=== PATIENT | female | born 1950 | race Caucasian/White ===

== ENCOUNTER 2016-10-20 20:25 | Inpatient (IN) | payer MEDICARE, OTHER ==
--- NOTE | ~2016-10-20 | EGD ---
EGD REPORT [facility] [address] [address] NAME: SARA MIDDLETON : [birth year] STATUS : ADM IN PAT#: [id number] AGE: 66 ADM/REG DATE : 10/20/16 MR#: [id number] REPORT SERV DATE: 10/26/16 DICTATED BY: DANIEL ENRIQUE DATE: 10/26/16 REPORT STATUS : Draft [facility]ANS[facility]ED [facility]: [facility] DATE: 10/26/16 Pulmonology Patient Name: Sara Middleton Procedure Date: 10/26/2016 9:50 AM Date of : 1950 Attending MD: ALEX ENRIQUE MD Procedure Date No Time: 10/26/2016 Procedure: Bronchoscopy Indications: Bilateral infiltrates, chronic cough, tree in bud opacities, question of atypical infection Providers: ALEX ENRIQUE MD Referring MD: JAKOB WILSON Medicines: Lidocaine 2% 20 mL Complications: No immediate complications Procedure: Pre-Anesthesia Assessment: - A History and Physical has been performed. Patient meds and allergies have been reviewed. The risks and benefits of the procedure and the sedation options and risks were discussed with the patient. All questions were answered and informed consent was obtained. Patient identification and proposed procedure were verified prior to the procedure by the physician and the nurse in the pre-procedure area in the procedure room. Mental Status Examination: alert and oriented. Airway Examination: normal oropharyngeal airway. Respiratory Examination: poor air movement and rhonchi. CV Examination: normal and RRR, no murmurs, no S3 or S4. ASA Grade Assessment: IV - A patient with severe systemic disease that is a constant threat to life. After reviewing the risks and benefits, the patient was deemed in satisfactory condition to undergo the procedure. The anesthesia plan was to use general anesthesia. Immediately prior to administration of medications, the patient was re-assessed for adequacy to receive sedatives. The heart rate, respiratory rate, oxygen saturations, blood pressure, adequacy of pulmonary ventilation, and response to care were monitored throughout the procedure. The physical status of the patient was re-assessed after the procedure. After obtaining informed consent, the Bronchoscope was introduced through the mouth, via the endotracheal tube (the patient was intubated for the procedure) and advanced to the tracheobronchial tree. The procedure was accomplished without difficulty. The patient tolerated the procedure well. Findings: EGD REPORT [place] [facility] [place]. [address] NAME: SARA MIDDLETON : [birth year] STATUS : ADM IN [facility]#: [id number] AGE: 66 ADM/REG DATE : 10/20/16 MR#: [id number] REPORT SERV DATE: 10/26/16 DICTATED BY: DANIEL ENRIQUE DATE: 10/26/16 REPORT STATUS : Draft TRANSCRIBED BY: [facility] DATE: 10/26/16 The laryngeal mask airway is in normal position. The vocal cords move normally with breathing. The subglottic space is normal. The trachea is of normal caliber. The zhanna is sharp. The tracheobronchial tree was examined to at least the first subsegmental level. Bronchial mucosa and anatomy are normal; there are no endobronchial lesions, and no secretions. Bronchoalveolar lavage was performed in the right middle lobe of the lung and sent for cell count, cytology, bacterial culture, viral smears \T\ culture, and fungal and AFB analysis. 180 mL of fluid were instilled. 30 mL were returned. The return was cellular. Transbronchial brushings were obtained in the right middle lobe of the lung and sent for routine cytology and bacterial, AFB and fungal analysis. Two samples were obtained. Impression: - The examination was normal. - Bronchoalveolar lavage was performed. - Transbronchial brushings were obtained. Recommendation: - Await test results. - Chest X-ray post-procedure. Attending Participation: I personally performed the entire procedure. ALEX ENRIQUE MD 10/26/2016 11:54 AM This report has been signed electronically. Number of Addenda: 0 Note Initiated On: 10/26/2016 9:50 AM [address] [address]
--- NOTE | ~2016-10-20 | CN ---
Consultation Report [facility] [address] [facility] [place]. [address] NAME: AMY MIDDLETON : [birth year] STATUS : ADM IN [facility]#: [id number] AGE: 66 ADM/REG DATE : 10/20/16 MR#: [id number] REPORT SERV DATE: 10/23/16 DICTATED BY: LAURA MORFIN DATE: 10/23/16 REPORT STATUS : Draft TRANSCRIBED BY: MODL DATE: 10/23/16 PULMONARY CONSULTATION DATE OF CONSULTATION: 10/23/2016 REASON FOR CONSULTATION: Coughing and not feeling well. HISTORY OF PRESENT ILLNESS: Mrs. Middleton is a 66-year-old female with a past medical history of underlying chronic kidney disease, who was noted to have a fall around recently and was sent to the hospital. The patient states that for the last month, she has been having increased cough and congestion. She has not had any fevers or chills, she has had a little bit of sputum and has been short of breath. She is currently on oxygen therapy. We reviewed her CT scan, which show underlying bilateral infiltrates. These were noted back in 11/2014 also. She has never had a bronchoscopy to evaluate whether she may have chronic lung infection or not. She does have a known history of rheumatoid arthritis on chronic immunosuppression per the history and physical, however, I do not see any medication that is immunosuppressive. PAST MEDICAL HISTORY: End-stage renal disease, diabetes, cervical spine narrowing, coronary artery disease, heart failure, rheumatoid arthritis, hypothyroidism, history of recurrent urinary tract infections, fibromyalgia, hypertension, hyperlipidemia, hemorrhagic cystitis, history of stroke. HOME MEDICATIONS: Home medication list reviewed, the patient is on albuterol, Plavix, Breo. ALLERGIES: TURKEY, DOXYCYCLINE. SOCIAL HISTORY: The patient is a nonsmoker. No alcohol or illicit drug use. FAMILY HISTORY: The patient denies having any positive family history. REVIEW OF SYSTEMS: Obtained a review of systems, however, the patient is not the best historian. She had no further complaints, wright negative, otherwise than what was discussed above. The patient states that she is to see a die hardener here in the next two weeks at our clinic but prior to that has not seen a die hardener. PHYSICAL EXAMINATION: VITAL SIGNS: Afebrile, heart rate 60s, respiratory rate is normal, oxygen saturation 99% on 3 L, blood pressure currently 150s to 160s. GENERAL: The patient is alert and oriented, no acute distress. PULMONARY: Mild rhonchorous breath sounds but otherwise good air movement, no wheezing. CARDIAC: Regular rate, no murmurs, somewhat distant. ABDOMEN: Soft, nontender, and nondistended. Consultation Report [place] [id number] [place]. [address] NAME: AMY MIDDLETON : [birth year] STATUS : ADM IN [facility]#: [id number] AGE: 66 ADM/REG DATE : 10/20/16 MR#: [id number] REPORT SERV DATE: 10/23/16 DICTATED BY: LAURA MORFIN DATE: 10/23/16 REPORT STATUS : Draft TRANSCRIBED BY: BALJINDER DATE: 10/23/16 EXTREMITIES: No lower extremity edema, peripheral pulses noted, somewhat faint. NEUROLOGIC: The patient is able to move all extremities with no perceived difficulty. HEENT: The patient has a hoarse voice, for which she states ENT has seen her for this hoarse voice and loss of voice strength. LABORATORY EXAMINATION: Mild leukocytosis, mild anemia, abnormal kidney function, elevated CRP, BNP greater than 5000 and mild positive troponin. IMAGING: The patient had a CT scan done two days ago, which shows this course tree-in-bud opacities throughout, noted in the left upper lobe, left lower lobe and somewhat thickened airways. ASSESSMENT AND PLAN: Mrs. Middleton is a 66-year-old female with a past medical history noted above, who presents to the Pulmonary Consult Service with pulmonary infiltrates, tree-in-bud opacities. Plan is to conduct a bronchoscopy to look for nontuberculous mycobacterial disease and/or other chronic lung infection. The patient is on Plavix and therefore, we will hold off on transbronchial biopsies. No significant enlarged mediastinal adenopathy and therefore, we will forego EBUS. Other consideration is chronic aspiration and therefore will get a modified barium swallow on Tuesday. Chronic cough: The patient is currently on cough medications with cough syrup, which is helping, she was on Breo home, currently is on Dulera and will continue that therapy. She has p.r.n. DuoNebs. I do not hear any coughing during my clinical evaluation. Thank for much for allowing us to participate in your patient's care, will continue to follow along with you. HFQ/MODL Laura Morfin MD / [id number] CC: Joe Ribera M.D.
--- NOTE | ~2016-10-20 | HP ---
History And Physical [address] [place]. [address] NAME: AMY MIDDLETON : [birth year] STATUS : ADM IN [facility]#: [id number] AGE: 66 ADM/REG DATE : 10/20/16 MR#: [id number] REPORT SERV DATE: 10/21/16 DICTATED BY: RAMONE HARRELL DATE: 10/21/16 REPORT STATUS : Draft TRANSCRIBED BY: MODRoberto DATE: 10/21/16 DATE OF ADMISSION: 10/20/2016 REASON FOR ADMISSION: Volume overload with elevated WBC. HISTORY OF PRESENT ILLNESS: This is a very pleasant 66-year-old female patient, who dialyzes on Tuesday, Tuesday, and Tuesday at [facility]. She reports to [facility] after dialysis yesterday complaining of shortness of breath and dyspnea, which worsened the last evening with a noted BNP above 5000 and a white count at 14.9. She is admitted in favor of further workup and support. She reports no associated fever or chest pain, is chronic for nausea and intermittent emesis by her report, and is in no acute distress during evaluation this morning. PAST MEDICAL HISTORY: Positive for end-stage renal disease with dialysis at [facility] via left upper extremity access. The remainder of her medical history is positive for diabetes mellitus; chronic nausea and vomiting; previous [facility] to left cephalic arch by Dr. Pedersen, cervical spine degenerative arthritis, C5-C6, C6-C7 foraminal narrowing of the left with probable radicular pain, treated previously with Neurontin; coronary artery disease, not amenable to further intervention; history of congestive heart failure; rheumatoid arthritis, on chronic immunosuppression; hypothyroidism; history of recurrent urinary tract infections; depression; fibromyalgia; history of hypertension; hyperlipidemia; vitamin D deficiency; hemorrhagic cystitis on bladder biopsy; remote cholecystectomy; renal osteodystrophy; and remote cerebrovascular accident with left-sided weakness and numbness. REVIEW OF SYSTEMS: Completed, please see HPI for pertinent details. SOCIAL HISTORY: No EtOH. No illicit drugs. No tobacco. ALLERGIES: SHE LISTS ALLERGIES TO DOXYCYCLINE AND TO TURKEY. ACTIVE MEDICATIONS: Include ProAir HFA one puff inhaled q.4 hours p.r.n., Proventil one neb inhaled p.r.n. shortness of breath, ASA 325 mg p.o. q.h.s., Tums 1000 mg p.o. with meals, Coreg 12.5 mg p.o. b.i.d., Plavix 75 mg p.o. q.h.s., 630 mg p.o. with meals, Prozac 20 mg p.o. q.48 hours, Prozac 40 mg p.o. q.48 hours, Breo Ellipta one puff inhaled daily, NovoLog via sliding scale and 8 units subcu twice a day, Synthroid 75 mcg p.o. daily, Protonix 40 mg p.o. q.h.s., Zocor 40 mg p.o. daily. PHYSICAL EXAMINATION: VITAL SIGNS: Blood pressure at 131/56, heart rate at 72 beats per minute and regular, respiratory rate at 20, temperature 98.2, and 97% on 3 L. GENERAL: She is awake and alert, in no acute distress, chronically ill-appearing female. HEENT: Normocephalic and atraumatic. Normal ocular movements. No scleral icterus or conjunctival pallor is appreciated. NECK: Supple without thyromegaly. No JVD. No mass. History And Physical [address] [address] NAME: AMY MIDDLETON : [birth year] STATUS : ADM IN [facility]#: [id number] AGE: 66 ADM/REG DATE : 10/20/16 MR#: [id number] REPORT SERV DATE: 10/21/16 DICTATED BY: RAMONE HARRELL DATE: 10/21/16 REPORT STATUS : Draft TRANSCRIBED BY: BALJINDER DATE: 10/21/16 CHEST: Shows positive S1 and S2. No rubs. No gallops. LUNGS: Diminished with rhonchi, particularly in the left base. GI: Shows positive bowel sounds to all four quadrants. No appreciable mass or tenderness. : Deferred. EXTREMITIES: Show positive pulses. No clubbing, cyanosis, or edema. Left upper extremity has an access for active hemodialysis. NEUROLOGIC: She appears to be grossly intact and nonfocal. SKIN: Warm, dry, and intact to visualized surfaces. No rash, lesions, or ecchymosis. She is of appropriate mood and affect. LABORATORY DATA: Pertinent laboratories and imaging to this evaluation: Sodium 135, potassium 3.5, chloride 95, CO2 of 33, BUN , creatinine 3.19, reflected GFR at 16 mL/minute, calcium 9.2, magnesium 1.8. Troponin 0.05. White blood cell count of 14.9, RBC 3.81, hemoglobin 11.4, hematocrit 35.3. B-natriuretic peptide greater than 5000. Chest x-ray shows clear lungs and cardiomegaly. IMPRESSION AND PLAN: This is a 66-year-old female patient on Tuesday, Tuesday, and Tuesday dialysis at [facility], who reports to [facility] with complaint of increasing shortness of breath, dyspnea on exertion, productive cough and is noted to have a BNP above 5000 and elevated WBC. Considering her current elevated B-natriuretic peptide, hemodialysis today, an attempted UF as tolerated 2-3 kg, check her echocardiogram, trend her troponins, consider cardiac consultation. She does have a previous cardiac history and is not amenable to cardiac surgery according to her previous histories. Check blood cultures x2. Urinary culture with C and S if she still actively makes urine. Cover her with vancomycin and Zosyn and request pharmacy dosing. DuoNeb q.6 hours and p.r.n. Ask for evaluation by Physical Therapy while here and consider rehabilitation if clinically warranted. Further modification of the treatment plan may be made based on clinical presentation of the patient, laboratory results, and further consultation with Renal attending. DICTATED BY: Kiet Taylor NP JR/BALJINDER Ramone Harrell M.D. / [id number] CC: Joe Ribera M.D.
--- NOTE | ~2016-10-20 | DS ---
Discharge Summary [address] [address] [place]. [address] NAME: AMY MIDDLETON : 46 STATUS : DIS IN PAT#: [id number] AGE: 66 ADM/REG DATE : 10/20/16 MR#: [id number] REPORT SERV DATE: 11/09/16 DICTATED BY: RAMONE HARRELL DATE: 11/09/16 REPORT STATUS : Draft TRANSCRIBED BY: BALJINDER DATE: 11/09/16 Data Collection from hospitalization DISCHARGE DIAGNOSES: 1. Bilateral pneumonia. 2. Chronic cough. 3. End-stage renal disease. 4. Diabetes mellitus. 5. Chronic immunosuppression for rheumatoid arthritis. 6. Coronary artery disease. 7. Hypertension. 8. History of congestive heart failure. 9. Hypothyroidism. 10.Depression. 11.Fibromyalgia. 12.Hyperlipidemia. 13.Vitamin D deficiency. 14.History of renal osteodystrophy. 15.Remote history of cerebrovascular accident with left-sided weakness and numbness. CONSULTATIONS: Laura Morfin MD PROCEDURES PERFORMED: 1. Bronchoscopy on 10/26/2016. 2. CT scan of the chest without contrast on 10/21/2016. 3. Modified barium swallow study on 10/27/2016. PATHOLOGY: Right middle lobe bronchoalveolar lavage (ThinPrep and Gram stain) - benign respiratory mucosa and macrophages with mild acute inflammation, Gram stain with rare budding yeast, right middle lobe brushing (ThinPrep) - benign bronchial mucosa. MEDICATIONS: Aspirin 325 mg at bedtime, Tums 1000 mg with meals, Coreg 12.5 mg twice a day, Plavix 75 mg at bedtime, ferrous sulfate 600 mg with meals, Prozac 40 mg every 48 hours alternating with 20 mg every 48 hours, NovoLog injection insulin as instructed, Synthroid 75 mcg daily, Nitrol ointment one-inch topically every six hours, Protonix 40 mg at bedtime, Florastor one capsule twice a day, Zocor 40 mg at bedtime, DuoNeb 3 mL via inhaler every four hours while awake, Dulera two puffs via inhaler twice a day, Levemir 8 units subcutaneously twice a day, Tylenol 650 mg as needed, Norvasc 5 mg twice a day as needed, Tessalon 100 mg every six hours as needed, Robitussin A-C 5 mL every eight hours as needed, [place] 5/325 one tablet every six hours as needed, nitroglycerin 0.4 mg sublingually as needed, Proventil 3 mL via inhaler every two hours as needed and one puff via inhaler every four hours as needed, Auryxia 630 mg with meals, and Breo Ellipta one puff via inhaler daily. CONDITION AT DISCHARGE: Stable. DISPOSITION: The patient was discharged to [facility] on a renal- diabetic diet with activities as instructed. She would follow up for dialysis on Discharge Summary [address] [place]. [address] NAME: AMY MIDDLETON : 46 STATUS : DIS IN PAT#: [id number] AGE: 66 ADM/REG DATE : 10/20/16 MR#: [id number] REPORT SERV DATE: 11/09/16 DICTATED BY: RAMONE HARRELL DATE: 11/09/16 REPORT STATUS : Draft TRANSCRIBED BY: BALJINDER DATE: 11/09/16 11/01/2016. HOSPITAL COURSE: This is a 66-year-old female who dialyzes on Mondays, Wednesdays, and Fridays. She presented to the [facility] after dialysis at this time complaining of shortness of breath and dyspnea which worsened during the evening and she was found to have a BNP above 5000 and a white count of 14.9. She had no associated fever or chest pain. She was admitted to the hospital at this time for further evaluation and treatment. Upon admission, creatinine level was 3.19. BNP was elevated. Hemodialysis was going to be performed. Echocardiogram was requested. We were going to trend troponin. Blood cultures were going to be checked. Urine cultures were going to be obtained with C and S. She would be covered with vancomycin and Zosyn. DuoNebs would be provided as needed. A CT scan of the chest without contrast was performed. This revealed increased diffuse bilateral interstitial opacity, which was likely interstitial edema. Interstitial pneumonitis could not be excluded. There was minimal left basilar atelectasis. The patient still had a cough. Echocardiogram revealed ejection fraction of 50%. On 10/22/2016, she was evaluated by Physical Therapy. Hemodialysis therapy was performed. Speech-Language pathology performed a bedside swallow study. There were no overt signs or symptoms of aspiration. Aspiration precautions were in place. On 10/23/2016, the patient was seen by Dr. Laura Morfin regarding cough and not feeling well. She was currently on oxygen therapy. Her CT scan had shown underlying bilateral infiltrates, these had been noted in November of 2014. She has never had a bronchoscopy to evaluate whether she may have chronic lung infection or not. She does have a history of rheumatoid arthritis and is on chronic immunosuppression. It was felt that the patient should undergo bronchoscopy to look for nontuberculous mycobacterial disease and/or other chronic lung infection. The patient is on Plavix and we would therefore hold off on transbronchial biopsies. There was no significant enlarged mediastinal adenopathy, and therefore, we would forego EBUS. Another consideration with chronic aspiration and we would get a modified barium swallow study. On 10/24/2016, creatinine level was 5.01. White count was 11.1. She had good pain control. She had no focal deficits. Plans were being made for bronchoscopy to be performed. The patient was requesting cough syrup. Hemodialysis therapy continued. Antibiotics were continued. On 10/26/2016, the patient underwent bronchoscopy by Dr. Simon Maurice. The examination was normal. Bronchoalveolar lavage was performed. Transbronchial brushings were obtained. She continued to have a cough. The following day, a modified barium swallow study was performed. No aspiration of liquids or solids was seen. Aspiration precautions remained in place. Over the next couple of days, she continued to do well. Discharge planning was performed. All bronchoscopy cultures were negative thus far. On 10/29/2016, her cough had improved. Her abdomen was soft and nontender. Her lungs were clear. Discharge instructions were given. Due to her improved and stable condition, she was discharged to [facility] with the above-stated instructions. Information collected by: Sanjana Tariq I submit the above information as my discharge summary. Discharge Summary [address] [address] NAME: AMY MIDDLETON : 46 STATUS : DIS IN PAT#: [id number] AGE: 66 ADM/REG DATE : 10/20/16 MR#: [id number] REPORT SERV DATE: 11/09/16 DICTATED BY: RAMONE HARRELL DATE: 11/09/16 REPORT STATUS : Draft TRANSCRIBED BY: MODRoberto DATE: 11/09/16 TG/MODL Ramone Harrell M.D. / [id number] CC: Joe Ribera M.D. [facility]
[2016-10-20 18:18] LABS: BASOPHILS 0.2 %; BASOPHILS ABSOLUTE 0.03 10/3/uL (0.0-0.16); EOSINOPHILS 1.7 %; EOSINOPHILS ABSOLUTE 0.26 10/3/uL (0.0-0.53); HEMOGLOBIN 11.4 g/dL (12.0-16.0); IMMATURE GRANULOCYTES 0.3 %; IMMATURE GRANULOCYTES ABSOLUTE 0.05 10/3/uL (0.0-0.11); LYMPHOCYTES 6.1 %; LYMPHOCYTES ABSOLUTE 0.91 10/3/uL (0.67-4.30); MEAN CORPUS HGB CONC 32.3 g/dL (32.0-36.0); MEAN CORPUSCULAR HEMOGLOB 29.9 pg (26.0-34.0); MEAN CORPUSCULAR VOLUME 92.7 fL (80-100); MEAN PLATELET VOLUME 10.8 fL (9.2-13.0); MONOCYTES 6.1 %; MONOCYTES ABSOLUTE 0.91 10/3/uL (0.21-1.20); NEUTROPHILS 85.6 %; NEUTROPHILS ABSOLUTE 12.77 10/3/uL (2.02-8.40); PLATELET COUNT 195 10/3/uL (150-400); RBC DISTRIBUTION WIDTH 15.7 % (12.0-16.0); RED CELL COUNT 3.81 10/6/uL (4.0-5.6); WHITE BLOOD CELLS 14.9 10/3/uL (4.5-10.5)
[2016-10-20 18:21] LABS: HEMATOCRIT 35.3 % (36.0-48.0); MANUAL DIFF NO %
[2016-10-20 18:26] LABS: INTERNATIONAL NORMAL RATI 1.1 UNITS (-); PARTIAL THROMBO TIME 30.6 SEC (22.5-37.2); PROTIME (NOT ORD) 13.8 SEC (12.0-14.5)
[2016-10-20 18:34] LABS: BUN (BLOOD UREA NITROGEN) 16 MG/DL (6-23); CALCIUM, SERUM 9.2 MG/DL (8.5-10.4); CHEST PAIN PROFILE TAT 0 Hrs 20 Mins; CHLORIDE, SERUM 95 MMOL/L (96-112); CO2 (CARBON DIOXIDE) 33 MMOL/L (24-34); CREATININE 3.19 MG/DL (0.55-1.02); GFR AFRICAN AMERICAN 16 ML/MIN (>=60); GFR NON AFRICAN AMERICAN 14 ML/MIN (>=60); GLUCOSE, SERUM 142 MG/DL (60-99); POTASSIUM, SERUM 3.5 MMOL/L (3.5-5.3); SODIUM, SERUM 135 MMOL/L (135-148); TROPONIN I 0.05 NG/ML (<0.05)
[2016-10-20 18:41] LABS: BAND NEUTROPHILS 1 %; EOSINOPHILS 3 %; EOSINOPHILS ABSOLUTE (CALC) 0.45 10/3/uL (0.0-0.53); ER DIFF TAT 0 Hrs 27 Mins; LYMPHOCYTES 4 %; MONOCYTES 2 %; NEUTROPHILS ABSOLUTE (CALC) 13.56 10/3/uL (2.02-8.40); SEGMENTED NEUTROPHIL (0) 90 %; TOTAL NUCLEATED CELLS 100
[2016-10-20 18:42] LABS: PLATELET ESTIMATE ADQ (ADEQUATE); RBC MORPHOLOGY NORM (NORMAL)
[~2016-10-20 20:25] MED LIST: ACTEMRA80 MG/4 ML IV; ALBUTEROL5 INH; AMLODIPINE; AMLODIPINE PO; ARAVA10 PO; ASAB PO; ASABAYER PO; AURYXIA PO; BUM1 PO; BUSPAR5 PO; CALGLUCTAB PO; CALTRA600D PO; CALTRAT600 PO; CEFT5 PO; CENTRUM PO; COREG12 PO; COREG25 PO; COREG3 PO; CYMBALTA60 PO; DITRO5 PO; FOLIC PO; LANTUS SC; LANTUS SQ; LASIX; LEVAQUIN750 MG PO; LEVEMFLXPN SC; LEVEMIR SC; LEVEMIR SQ; LEVOTHROID75 MCG PO; LEVOTHYROXIN75 MCG PO; LISINOPRIL40 MG PO; LORTAB10 PO; LYRICA100 MG PO; LYRICA50 PO; METOCLOPRAM; MTX2.5 PO; NEPHRO PO; NEUR100 PO; NORV25 PO; NORV5 PO; NOVOLOG PEN; NOVOLOG SC; NOVOLOG SQ; NOVOPEN SC; P10 PO; PLAQ200B PO; PLAVIX PO; PREV30 PO; PRILO PO; PRIN10 PO; RENAL SFTGLS1 MG PO; REST15 PO; REST75 PO; ROCALTROL0.25 MCG OR; SALAGEN5 M1 OR; SALAGEN5 M1 PO; SYN.025B PO; SYN.05 PO; SYN075 PO; TESS PO; TESSALON PO; TREXALL10 MG PO; TUMSROLL PO; VISTARIL PO; VITAMIN D1000 UNI1 PO; Z-PAK PO; ZESTRIL40 MG PO; ZOCOR40 PO; [UNRECOGNIZED DRUG - OTHER]
[2016-10-20] MEDS ORDERED: ASA5GR PO (20:51)
[2016-10-20] MEDS ORDERED: AURYXIA210 MG PO (20:51)
[2016-10-20] MEDS ORDERED: NOVOLOG SC (20:52)
[2016-10-20] MEDS ORDERED: LEVEMFLXPN SC (20:52)
[2016-10-20] MEDS ORDERED: COREG12 PO (20:52)
[2016-10-20] MEDS ORDERED: PROTONIX PO (20:53)
[2016-10-20] MEDS ORDERED: PLAVIX PO (20:53)
[2016-10-20] MEDS ORDERED: TUMSROLL PO (20:53)
[2016-10-20] MEDS ORDERED: SYN075 PO (20:53)
[2016-10-20] MEDS ORDERED: PROAIR HFA INH (20:53)
[2016-10-20] MEDS ORDERED: ALBUTEROL5 INH (20:54)
[2016-10-20] MEDS ORDERED: ZOCOR40 PO (20:54)
[2016-10-20] MEDS ORDERED: BREO ELLIPTA INH (20:54)
[2016-10-20] MEDS ORDERED: PROZAC PO (20:55)
[2016-10-20] MEDS ORDERED: PROZAC40 MG PO (20:55)
[2016-10-21 08:30] LABS: BASOPHILS 0.1 %; BASOPHILS ABSOLUTE 0.01 10/3/uL (0.0-0.16); EOSINOPHILS 0.1 %; EOSINOPHILS ABSOLUTE 0.01 10/3/uL (0.0-0.53); HEMATOCRIT 31.4 % (36.0-48.0); HEMOGLOBIN 10.3 g/dL (12.0-16.0); IMMATURE GRANULOCYTES 0.4 %; IMMATURE GRANULOCYTES ABSOLUTE 0.06 10/3/uL (0.0-0.11); LYMPHOCYTES 10.4 %; LYMPHOCYTES ABSOLUTE 1.69 10/3/uL (0.67-4.30); MANUAL DIFF NO %; MEAN CORPUS HGB CONC 32.8 g/dL (32.0-36.0); MEAN CORPUSCULAR HEMOGLOB 29.9 pg (26.0-34.0); MEAN CORPUSCULAR VOLUME 91.3 fL (80-100); MEAN PLATELET VOLUME 11.3 fL (9.2-13.0); MONOCYTES 6.2 %; NEUTROPHILS 82.8 %; NEUTROPHILS ABSOLUTE 13.44 10/3/uL (2.02-8.40); PLATELET COUNT 175 10/3/uL (150-400); RBC DISTRIBUTION WIDTH 15.5 % (12.0-16.0); RED CELL COUNT 3.44 10/6/uL (4.0-5.6); WHITE BLOOD CELLS 16.2 10/3/uL (4.5-10.5)
[2016-10-21 08:35] LABS: ALBUMIN 2.8 G/DL (3.5-5.0); BUN (BLOOD UREA NITROGEN) 26 MG/DL (6-23); CALCIUM, SERUM 8.9 MG/DL (8.5-10.4); CHLORIDE, SERUM 99 MMOL/L (96-112); CO2 (CARBON DIOXIDE) 31 MMOL/L (24-34); CREATININE 4.09 MG/DL (0.55-1.02); GFR AFRICAN AMERICAN 12 ML/MIN (>=60); GFR NON AFRICAN AMERICAN 11 ML/MIN (>=60); GLUCOSE, SERUM 159 MG/DL (60-99); PHOSPHORUS, SERUM 3.5 MG/DL (2.5-4.5); POTASSIUM, SERUM 3.8 MMOL/L (3.5-5.3); SODIUM, SERUM 137 MMOL/L (135-148)
[2016-10-22 06:27] LABS: ALBUMIN 2.8 G/DL (3.5-5.0); BASOPHILS 0.2 %; BASOPHILS ABSOLUTE 0.03 10/3/uL (0.0-0.16); BUN (BLOOD UREA NITROGEN) 26 MG/DL (6-23); CALCIUM, SERUM 8.9 MG/DL (8.5-10.4); CHLORIDE, SERUM 107 MMOL/L (96-112); CO2 (CARBON DIOXIDE) 26 MMOL/L (24-34); CREATININE 3.56 MG/DL (0.55-1.02); EOSINOPHILS 0.7 %; EOSINOPHILS ABSOLUTE 0.09 10/3/uL (0.0-0.53); GFR AFRICAN AMERICAN 14 ML/MIN (>=60); GFR NON AFRICAN AMERICAN 12 ML/MIN (>=60); GLUCOSE, SERUM 92 MG/DL (60-99); HEMOGLOBIN 10.8 g/dL (12.0-16.0); IMMATURE GRANULOCYTES 0.4 %; IMMATURE GRANULOCYTES ABSOLUTE 0.05 10/3/uL (0.0-0.11); LYMPHOCYTES 6.5 %; LYMPHOCYTES ABSOLUTE 0.81 10/3/uL (0.67-4.30); MEAN CORPUS HGB CONC 31.8 g/dL (32.0-36.0); MEAN CORPUSCULAR HEMOGLOB 29.8 pg (26.0-34.0); MEAN CORPUSCULAR VOLUME 93.7 fL (80-100); MEAN PLATELET VOLUME 11.4 fL (9.2-13.0); MONOCYTES 4.2 %; MONOCYTES ABSOLUTE 0.52 10/3/uL (0.21-1.20); NEUTROPHILS ABSOLUTE 10.98 10/3/uL (2.02-8.40); PHOSPHORUS, SERUM 3.1 MG/DL (2.5-4.5); PLATELET COUNT 190 10/3/uL (150-400); POTASSIUM, SERUM 3.6 MMOL/L (3.5-5.3); RBC DISTRIBUTION WIDTH 15.9 % (12.0-16.0); RED CELL COUNT 3.63 10/6/uL (4.0-5.6); SODIUM, SERUM 142 MMOL/L (135-148); TROPONIN I 0.06 NG/ML (<0.05); WHITE BLOOD CELLS 12.5 10/3/uL (4.5-10.5)
[2016-10-22 06:29] LABS: MANUAL DIFF NO %
[2016-10-23 07:09] LABS: BASOPHILS 0.3 %; BASOPHILS ABSOLUTE 0.04 10/3/uL (0.0-0.16); EOSINOPHILS 1.8 %; EOSINOPHILS ABSOLUTE 0.22 10/3/uL (0.0-0.53); HEMATOCRIT 34.1 % (36.0-48.0); HEMOGLOBIN 10.8 g/dL (12.0-16.0); IMMATURE GRANULOCYTES 0.2 %; IMMATURE GRANULOCYTES ABSOLUTE 0.03 10/3/uL (0.0-0.11); LYMPHOCYTES 12.8 %; MEAN CORPUS HGB CONC 31.7 g/dL (32.0-36.0); MEAN CORPUSCULAR HEMOGLOB 29.7 pg (26.0-34.0); MEAN CORPUSCULAR VOLUME 93.7 fL (80-100); MONOCYTES 6.9 %; MONOCYTES ABSOLUTE 0.86 10/3/uL (0.21-1.20); NEUTROPHILS ABSOLUTE 9.79 10/3/uL (2.02-8.40); PLATELET COUNT 199 10/3/uL (150-400); RBC DISTRIBUTION WIDTH 15.5 % (12.0-16.0); RED CELL COUNT 3.64 10/6/uL (4.0-5.6); WHITE BLOOD CELLS 12.5 10/3/uL (4.5-10.5)
[2016-10-23 07:10] LABS: ALBUMIN 3.1 G/DL (3.5-5.0); BUN (BLOOD UREA NITROGEN) 25 MG/DL (6-23); CALCIUM, SERUM 9.1 MG/DL (8.5-10.4); CHLORIDE, SERUM 103 MMOL/L (96-112); CO2 (CARBON DIOXIDE) 29 MMOL/L (24-34); CREATININE 3.61 MG/DL (0.55-1.02); GFR AFRICAN AMERICAN 14 ML/MIN (>=60); GFR NON AFRICAN AMERICAN 12 ML/MIN (>=60); GLUCOSE, SERUM 145 MG/DL (60-99); PHOSPHORUS, SERUM 2.2 MG/DL (2.5-4.5); POTASSIUM, SERUM 3.6 MMOL/L (3.5-5.3); SODIUM, SERUM 140 MMOL/L (135-148)
[2016-10-23 07:12] LABS: MANUAL DIFF NO %
[2016-10-24 05:50] LABS: BASOPHILS 0.5 %; BASOPHILS ABSOLUTE 0.05 10/3/uL (0.0-0.16); EOSINOPHILS 5.1 %; EOSINOPHILS ABSOLUTE 0.56 10/3/uL (0.0-0.53); HEMATOCRIT 34.1 % (36.0-48.0); IMMATURE GRANULOCYTES 0.3 %; IMMATURE GRANULOCYTES ABSOLUTE 0.03 10/3/uL (0.0-0.11); LYMPHOCYTES 16.4 %; LYMPHOCYTES ABSOLUTE 1.81 10/3/uL (0.67-4.30); MANUAL DIFF NO %; MEAN CORPUS HGB CONC 32.3 g/dL (32.0-36.0); MEAN CORPUSCULAR HEMOGLOB 29.6 pg (26.0-34.0); MEAN CORPUSCULAR VOLUME 91.7 fL (80-100); MEAN PLATELET VOLUME 10.3 fL (9.2-13.0); MONOCYTES 6.3 %; NEUTROPHILS 71.4 %; NEUTROPHILS ABSOLUTE 7.92 10/3/uL (2.02-8.40); PLATELET COUNT 217 10/3/uL (150-400); RBC DISTRIBUTION WIDTH 15.3 % (12.0-16.0); RED CELL COUNT 3.72 10/6/uL (4.0-5.6); WHITE BLOOD CELLS 11.1 10/3/uL (4.5-10.5)
[2016-10-24 06:04] LABS: ALBUMIN 2.9 G/DL (3.5-5.0); BUN (BLOOD UREA NITROGEN) 34 MG/DL (6-23); CALCIUM, SERUM 9.4 MG/DL (8.5-10.4); CHLORIDE, SERUM 104 MMOL/L (96-112); CO2 (CARBON DIOXIDE) 28 MMOL/L (24-34); CREATININE 5.01 MG/DL (0.55-1.02); GFR AFRICAN AMERICAN 10 ML/MIN (>=60); GFR NON AFRICAN AMERICAN 8 ML/MIN (>=60); GLUCOSE, SERUM 65 MG/DL (60-99); PHOSPHORUS, SERUM 2.1 MG/DL (2.5-4.5); POTASSIUM, SERUM 3.5 MMOL/L (3.5-5.3); SODIUM, SERUM 139 MMOL/L (135-148)
[2016-10-25 10:34] LABS: HEMOGLOBIN 10.9 g/dL (12.0-16.0); MEAN CORPUS HGB CONC 32.1 g/dL (32.0-36.0); MEAN CORPUSCULAR HEMOGLOB 29.2 pg (26.0-34.0); MEAN CORPUSCULAR VOLUME 91.2 fL (80-100); MEAN PLATELET VOLUME 10.5 fL (9.2-13.0); PLATELET COUNT 219 10/3/uL (150-400); RBC DISTRIBUTION WIDTH 15.2 % (12.0-16.0); RED CELL COUNT 3.73 10/6/uL (4.0-5.6)
[2016-10-25 10:37] LABS: MANUAL DIFF YES %
[2016-10-25 10:43] LABS: BASOPHILS 1 %; BASOPHILS ABSOLUTE (CALC) 0.13 10/3/uL (0.0-0.16); EOSINOPHILS 6 %; EOSINOPHILS ABSOLUTE (CALC) 0.78 10/3/uL (0.0-0.53); LYMPHOCYTES 13 %; LYMPHOCYTES ABSOLUTE (CALC) 1.69 10/3/uL (0.67-4.30); MONOCYTES 8 %; MONOCYTES ABSOLUTE (CALC) 1.04 10/3/uL (0.21-1.20); NEUTROPHILS ABSOLUTE (CALC) 9.36 10/3/uL (2.02-8.40); PLATELET ESTIMATE ADQ (ADEQUATE); SEGMENTED NEUTROPHIL (0) 72 %; TOTAL NUCLEATED CELLS 100
[2016-10-25 10:44] LABS: SCHISTOCYTES OCC (0-2/OIF)
[2016-10-25 11:23] LABS: ALBUMIN 2.7 G/DL (3.5-5.0); BUN (BLOOD UREA NITROGEN) 46 MG/DL (6-23); CALCIUM, SERUM 9.3 MG/DL (8.5-10.4); CHLORIDE, SERUM 104 MMOL/L (96-112); CO2 (CARBON DIOXIDE) 23 MMOL/L (24-34); CREATININE 6.75 MG/DL (0.55-1.02); GFR AFRICAN AMERICAN 7 ML/MIN (>=60); GFR NON AFRICAN AMERICAN 6 ML/MIN (>=60); GLUCOSE, SERUM 66 MG/DL (60-99); PHOSPHORUS, SERUM 2.6 MG/DL (2.5-4.5); POTASSIUM, SERUM 3.6 MMOL/L (3.5-5.3); SODIUM, SERUM 138 MMOL/L (135-148)
[2016-10-26 06:50] LABS: INTERNATIONAL NORMAL RATI 1.2 UNITS (-); PARTIAL THROMBO TIME 49.3 SEC (22.5-37.2); PROTIME (NOT ORD) 15.4 SEC (12.0-14.5)
[2016-10-26 09:29] LABS: CALCIUM, SERUM 8.9 MG/DL (8.5-10.4); CHLORIDE, SERUM 107 MMOL/L (96-112); CO2 (CARBON DIOXIDE) 27 MMOL/L (24-34); POTASSIUM, SERUM 3.6 MMOL/L (3.5-5.3); SODIUM, SERUM 144 MMOL/L (135-148)
[2016-10-26 09:30] LABS: BUN (BLOOD UREA NITROGEN) 27 MG/DL (6-23); CREATININE 4.42 MG/DL (0.55-1.02); GFR AFRICAN AMERICAN 11 ML/MIN (>=60); GFR NON AFRICAN AMERICAN 10 ML/MIN (>=60); GLUCOSE, SERUM 143 MG/DL (60-99)
[2016-10-26 14:21] LABS: BD FL LYMPH (NOT ORD) 4 %; BF BASO (NOT OF) 0 %; BF LARGE MONONUCLEAR 66 %; BODY FLUID EOS (NOT ORD) 0 %; BODY FLUID SEG (NOT ORD) 30 %
[2016-10-26 14:22] LABS: BD FL SOURCE (NOT ORD) BAL; BF TOTAL CELL CT (NOT ORD 610 /MM3; BODY FLUID RBC (NOT ORD) 1000 /MM3
[2016-10-27 05:57] LABS: BASOPHILS 0.4 %; BASOPHILS ABSOLUTE 0.05 10/3/uL (0.0-0.16); EOSINOPHILS 5.1 %; EOSINOPHILS ABSOLUTE 0.62 10/3/uL (0.0-0.53); HEMATOCRIT 32.8 % (36.0-48.0); HEMOGLOBIN 10.7 g/dL (12.0-16.0); IMMATURE GRANULOCYTES 0.7 %; IMMATURE GRANULOCYTES ABSOLUTE 0.09 10/3/uL (0.0-0.11); LYMPHOCYTES 9.5 %; LYMPHOCYTES ABSOLUTE 1.15 10/3/uL (0.67-4.30); MANUAL DIFF NO %; MEAN CORPUS HGB CONC 32.6 g/dL (32.0-36.0); MEAN CORPUSCULAR HEMOGLOB 30.1 pg (26.0-34.0); MEAN CORPUSCULAR VOLUME 92.1 fL (80-100); MEAN PLATELET VOLUME 9.8 fL (9.2-13.0); MONOCYTES 5.9 %; MONOCYTES ABSOLUTE 0.72 10/3/uL (0.21-1.20); NEUTROPHILS 78.4 %; PLATELET COUNT 157 10/3/uL (150-400); RBC DISTRIBUTION WIDTH 15.3 % (12.0-16.0); RED CELL COUNT 3.56 10/6/uL (4.0-5.6); WHITE BLOOD CELLS 12.1 10/3/uL (4.5-10.5)
[2016-10-27 06:03] LABS: ALBUMIN 2.7 G/DL (3.5-5.0); CALCIUM, SERUM 9.2 MG/DL (8.5-10.4); CHLORIDE, SERUM 105 MMOL/L (96-112); CO2 (CARBON DIOXIDE) 23 MMOL/L (24-34); GFR AFRICAN AMERICAN 9 ML/MIN (>=60); GFR NON AFRICAN AMERICAN 7 ML/MIN (>=60); GLUCOSE, SERUM 119 MG/DL (60-99); PHOSPHORUS, SERUM 2.1 MG/DL (2.5-4.5); POTASSIUM, SERUM 3.7 MMOL/L (3.5-5.3); SODIUM, SERUM 139 MMOL/L (135-148)
[2016-10-27 06:04] LABS: BUN (BLOOD UREA NITROGEN) 40 MG/DL (6-23); CREATININE 5.44 MG/DL (0.55-1.02)
[2016-10-29 09:49] LABS: ALBUMIN 2.7 G/DL (3.5-5.0); BUN (BLOOD UREA NITROGEN) 30 MG/DL (6-23); CHLORIDE, SERUM 105 MMOL/L (96-112); CO2 (CARBON DIOXIDE) 24 MMOL/L (24-34); CREATININE 4.56 MG/DL (0.55-1.02); GFR AFRICAN AMERICAN 11 ML/MIN (>=60); GFR NON AFRICAN AMERICAN 9 ML/MIN (>=60); GLUCOSE, SERUM 128 MG/DL (60-99); PHOSPHORUS, SERUM 2.5 MG/DL (2.5-4.5); POTASSIUM, SERUM 3.2 MMOL/L (3.5-5.3); SODIUM, SERUM 140 MMOL/L (135-148)
== END 2016-10-29 16:11 | DRG 166 ==
LOC: ER 20:25 → 2SO 20:30
PROVIDERS: Anesthesiology; Emergency Medicine; Internal Medicine; Internal Medicine Nephrology; Registered Nurse
PROC: 5A1D60Z (ICD-10-PCS; 2016-10-26)
PROC: 0BBD8ZX Excision of Right Middle Lung Lobe, Via Natural or Artificial Opening Endoscopic, Diagnostic (ICD-10-PCS; principal; 2016-10-26 09:30)
PROC: 0B9D8ZX Drainage of Right Middle Lung Lobe, Via Natural or Artificial Opening Endoscopic, Diagnostic (ICD-10-PCS; 2016-10-26 09:30)
DX: J18.9 Pneumonia, unspecified organism (principal); N18.6 End stage renal disease; I13.2 Hypertensive heart and chronic kidney disease with heart failure and with stage 5 chronic kidney disease, or end stage renal disease; E11.22 Type 2 diabetes mellitus with diabetic chronic kidney disease; I27.2 Other secondary pulmonary hypertension; I69.854 Hemiplegia and hemiparesis following other cerebrovascular disease affecting left non-dominant side; I50.9 Heart failure, unspecified; E78.00 Pure hypercholesterolemia, unspecified; E03.9 Hypothyroidism, unspecified; E78.5 Hyperlipidemia, unspecified; E11.319 Type 2 diabetes mellitus with unspecified diabetic retinopathy without macular edema; I25.10 Atherosclerotic heart disease of native coronary artery without angina pectoris; M19.90 Unspecified osteoarthritis, unspecified site; M06.9 Rheumatoid arthritis, unspecified; M50.13 Cervical disc disorder with radiculopathy, cervicothoracic region; M79.7 Fibromyalgia; E55.9 Vitamin D deficiency, unspecified; R49.0 Dysphonia; F32.9 Major depressive disorder, single episode, unspecified; D63.8 Anemia in other chronic diseases classified elsewhere; Z79.01 Long term (current) use of anticoagulants; Z79.82 Long term (current) use of aspirin; Z79.4 Long term (current) use of insulin; Z79.899 Other long term (current) drug therapy; Z99.2 Dependence on renal dialysis; Z91.018 Allergy to other foods; Z86.73 Personal history of transient ischemic attack (TIA), and cerebral infarction without residual deficits; Z98.890 Other specified postprocedural states; Z88.1 Allergy status to other antibiotic agents; Z87.440 Personal history of urinary (tract) infections; Z95.1 Presence of aortocoronary bypass graft; Z91.048 Other nonmedicinal substance allergy status
CPT/HCPCS: 71010; 71020; 71250; 74230; 80048; 80069; 80202; 82962; 83735; 83880; 84484; 85025; 85610; 85730; 86140; 87015; 87040; 87070; 87102; 87116; 87205; 87493; 87493-59; 88112; 88312; 89051; 92610-GN; 92611-GN; 93005; 93321; 94640; 97161-GP; 99285; A9270-GY; G0257; G8978-CK-GP; G8979-CJ-GP; G8996-CI-GN; G8996-CJ-GN; G8997-CI-GN; G8997-CJ-GN; G8998-CI-GN; G8998-CJ-GN; J0360; J2405; J2543; J3010; J3370; P9047